=== PATIENT | female | born 1995 | race Caucasian/White ===

== ENCOUNTER 2021-12-18 13:46 | Emergency (ER) | payer OTHER ==
[~2021-12-18] VITALS: Ht 152.4 cm; Wt 68.0 kg
[~2021-12-18 13:46] MED LIST: CEFADROXIL500 MG PO; GILTUSS HC SYR473 ML; KEPPRA500 MG PO; LOVENOX40 MG/0.4; LOVENOX40 MG/0.4 SUBCUTANEO; PRENATAL 19 TA1 EACH PO; PULMICORT1 MG/2 ML; TOPAMAX50 MG; XOPENEX0.63 MG/3
== END 2021-12-18 18:13 | disposition home or self-care (01) ==
LOC: ER 13:46
DX: O23.41 Unspecified infection of urinary tract in pregnancy, first trimester (principal); N39.0 Urinary tract infection, site not specified; Z3A.01 Less than 8 weeks gestation of pregnancy; Z88.6 Allergy status to analgesic agent

== ENCOUNTER 2022-02-14 12:00 | Emergency (ER) | payer OTHER ==
[~2022-02-14] VITALS: Ht 152.4 cm; Wt 71.7 kg
== END 2022-02-14 15:33 | disposition home or self-care (01) ==
LOC: ER 12:00
DX: O23.41 Unspecified infection of urinary tract in pregnancy, first trimester (principal); N39.0 Urinary tract infection, site not specified; R51.9 Headache, unspecified; Z3A.13 13 weeks gestation of pregnancy; Z88.6 Allergy status to analgesic agent; Z20.822 Contact with and (suspected) exposure to COVID-19

== ENCOUNTER 2022-05-24 14:41 | Outpatient (CLI) | payer OTHER | END 2022-05-24 15:15 | disposition home or self-care (01) | LOC: NST 14:41 | PROVIDERS: ATTEND Obstetrics & Gynecology Maternal & Fetal Medicine | DX: Z34.82 Encounter for supervision of other normal pregnancy, second trimester (principal) ==

== ENCOUNTER 2022-06-15 12:02 | Outpatient (CLI) | payer OTHER | END 2022-06-15 12:48 | disposition home or self-care (01) | LOC: NST 12:02 | PROVIDERS: ATTEND Obstetrics & Gynecology Maternal & Fetal Medicine | DX: Z34.83 Encounter for supervision of other normal pregnancy, third trimester (principal) ==

== ENCOUNTER 2022-06-27 16:20 | Outpatient (CLI) | payer OTHER | END 2022-06-27 17:21 | disposition home or self-care (01) | LOC: NST 16:20 | PROVIDERS: ATTEND Obstetrics & Gynecology | DX: Z34.83 Encounter for supervision of other normal pregnancy, third trimester (principal) ==

== ENCOUNTER 2022-07-18 14:15 | Outpatient (CLI) | payer OTHER | END 2022-07-18 18:11 | disposition home or self-care (01) | LOC: NST 14:15 | PROVIDERS: ATTEND Obstetrics & Gynecology Gynecology | DX: Z34.83 Encounter for supervision of other normal pregnancy, third trimester (principal) ==

== ENCOUNTER 2022-07-19 14:02 | Inpatient (IN) | payer OTHER ==
[~2022-07-19] VITALS: Ht 152.4 cm; Wt 75.7 kg
[2022-07-20] MEDS ORDERED: FAMOTIDINE20 MG (08:00)
[2022-07-20] MEDS ORDERED: PRENATAL + DHA1 EAC1 (08:04)
== END 2022-07-20 07:59 | disposition home or self-care (01) | DRG 833 ==
LOC: OBS/DEL 14:02 → LDR 19:04
PROVIDERS: ADMIT Obstetrics & Gynecology; ATTEND Obstetrics & Gynecology
PROC: BY4FZZZ Ultrasonography of Third Trimester, Single Fetus (ICD-10-PCS; principal; 2022-07-19)
PROC: 4A1HXCZ Monitoring of Products of Conception, Cardiac Rate, External Approach (ICD-10-PCS; 2022-07-19)
DX: O26.893 Other specified pregnancy related conditions, third trimester (principal); N89.8 Other specified noninflammatory disorders of vagina; Z20.822 Contact with and (suspected) exposure to COVID-19; Z3A.35 35 weeks gestation of pregnancy

== ENCOUNTER 2022-08-03 09:31 | Outpatient (CLI) | payer OTHER ==
[~2022-08-03 09:31] MED LIST changes: +FAMOTIDINE20 MG; +PRENATAL + DHA1 EAC1
== END 2022-08-03 10:26 | disposition home or self-care (01) ==
LOC: NST 09:31
PROVIDERS: ATTEND Obstetrics & Gynecology Maternal & Fetal Medicine
DX: Z34.83 Encounter for supervision of other normal pregnancy, third trimester (principal)

== ENCOUNTER 2022-08-03 13:45 | Inpatient (IN) | payer OTHER ==
[~2022-08-03] VITALS: Ht 152.4 cm; Wt 78.0 kg
== END 2022-08-12 14:13 | disposition home or self-care (01) | DRG 785 ==
LOC: O/R 08-09 08:29 → OB/GYN 08-09 13:45
PROVIDERS: ADMIT Obstetrics & Gynecology Maternal & Fetal Medicine; ATTEND Obstetrics & Gynecology Maternal & Fetal Medicine
PROC: 0UB70ZZ Excision of Bilateral Fallopian Tubes, Open Approach (ICD-10-PCS; 2022-08-09)
PROC: 4A1HXCZ Monitoring of Products of Conception, Cardiac Rate, External Approach (ICD-10-PCS; 2022-08-09)
PROC: 10D00Z1 Extraction of Products of Conception, Low, Open Approach (ICD-10-PCS; principal; 2022-08-09 14:45)
DX: O32.8XX0 Maternal care for other malpresentation of fetus, not applicable or unspecified (principal); Z3A.38 38 weeks gestation of pregnancy; Z37.0 Single live birth; Z20.822 Contact with and (suspected) exposure to COVID-19; Z30.2 Encounter for sterilization